=== PATIENT | male | born 1980 | race Caucasian/White ===

== ENCOUNTER 2018-05-31 14:42 | Inpatient (IN) ==
[2018-05-31] MEDS: HYDROmorphone PF Inj 2 MG/ML Vial ONE (20:45)
[2018-05-31] MEDS: Sod Chloride 0.9% Inj 1,000 ML IV.SIG SCH (22:17)
[2018-05-31] MEDS: Piperacil/Tazo 3.375 GM Premix 50 ML IV.SIG SCH (22:44)
[2018-05-31] MEDS: HYDROmorphone PF Inj 2 MG/ML Vial IV.PUSH PRN (23:57)
[2018-06-01] MEDS: HYDROmorphone PF Inj 2 MG/ML Vial ONE (00:38)
[2018-06-01] MEDS: HYDROmorphone PF Inj 2 MG/ML Vial IV.PUSH PRN ×7 (02:47→21:32)
[2018-06-01] MEDS: Piperacil/Tazo 3.375 GM Premix 50 ML IV.SIG SCH ×4 (02:48→20:01)
[2018-06-01] MEDS: Sod Chloride 0.9% Inj 1,000 ML IV.SIG SCH ×2 (06:14→20:01)
[2018-06-01] MEDS ORDERED: Bupivacaine/Epinephrine Inj 0.25% 50 ML Vial ONE (07:00)
[2018-06-01] MEDS ORDERED: Neostigmine Inj 5 MG/5 ML Syringe IV.PUSH ONE (10:00)
[2018-06-01] MEDS ORDERED: Glycopyrrolate Inj 1 MG/5 ML Syringe IV.PUSH ONE (10:00)
[2018-06-01] MEDS ORDERED: Lidocaine PF 1% Inj 5 ML Syringe OTHER ONE (10:00)
--- NOTE | 2018-06-01 10:49 | MH ---
cc: Mauricio Dias MD DATE OF ADMISSION: 05/31/2018 CHIEF COMPLAINT: Acute appendicitis. HISTORY OF PRESENT ILLNESS: The patient is a 37-year-old male who was transferred from [facility] to [facility] for acute appendicitis. The patient had 2 days of pain, colicky, umbilical pain that relocated to his right lower quadrant. The patient was seen at [place] emergency department and was found to have an elevated white blood cell count and right lower quadrant pain. CT scan did show significant inflammation around the appendix, concerning for acute appendicitis. The patient was transferred to [facility]. The patient currently is awaiting a time for surgery. He states that he got a fever overnight. His pain is well controlled on pain medication. He states he has never had pain like this prior, and the pain is relieved with the pain medication and as long as he does not move. He has had no nausea, vomiting, constipation, diarrhea, fevers, chills, or night sweats other than a fever overnight of 101.5. REVIEW OF SYSTEMS: A 12-point review of systems is conducted with the patient and is negative except for pertinent positives as mentioned above in history of present illness. PAST MEDICAL HISTORY: Asthma. PAST SURGICAL HISTORY: None. ALLERGIES: NO KNOWN DRUG ALLERGIES. HOME MEDICATIONS: None. SOCIAL HISTORY: The patient has used marijuana, e-cigarettes, tobacco cigarettes. He rarely drinks alcohol. FAMILY HISTORY: Reviewed and noncontributory. PHYSICAL EXAMINATION: VITAL SIGNS: Temperature 98.6 degrees, heart rate 97, blood pressure 102/56, O2 saturation 94%. GENERAL: The patient is a well-developed, well-nourished male in no acute distress. HEENT: Head is normocephalic, atraumatic. Pupils are round and reactive to the light. Sclerae are anicteric. Oral cavity is clear. Airway is patent. NECK: Supple. No JVD. LUNGS: Breath sounds present bilaterally, nonlabored breathing pattern. HEART: Regular rate and rhythm. No murmurs. ABDOMEN: Soft, nondistended. Normal bowel sounds. He has focal tenderness in the right lower quadrant without peritonitis or rebound tenderness. EXTREMITIES: No clubbing, cyanosis, or edema. BACK: No CVA tenderness. NEUROLOGIC: The patient is alert and oriented x3. Mood, judgment, and insight are intact. Cranial nerves 2-12 are grossly intact. Nonfocal peripheral exam. Overall, the patient does not appear acute or chronically ill. LABORATORY VALUES: White blood cell count elevated significantly at 20.6. IMAGING: CT scan reveals acute appendicitis. ASSESSMENT AND PLAN: The patient is a 37-year-old male with acute appendicitis. The patient is transferred from [place], is awaiting time at the operating room for availability. Continue IV antibiotics, pain medication, and IV fluids. I did discuss with the patient about treatment of acute appendicitis with laparoscopic appendectomy including risks, benefits, and alternatives. The patient agrees with the surgery and will proceed to surgery next available time in the OR. Mauricio Dias MD AWG/rm , 09:17 AM , 09:25 AM
[2018-06-01] MEDS ORDERED: fentaNYL Citrate Inj 100 MCG/2 ML Ampul ONE ×2 (11:34)
--- NOTE | 2018-06-01 16:19 | MP ---
cc: Mauricio iDas MD DATE OF OPERATION: 06/01/2018 PREOPERATIVE DIAGNOSIS: Acute appendicitis. POSTOPERATIVE DIAGNOSIS: Acute complicated (gangrenous) appendicitis. ATTENDING SURGEON: Mauricio Dias MD FILE DRAWER FINISHER: Staff. ANESTHESIA: General and local anesthetic. PROCEDURE PERFORMED: Laparoscopic appendectomy. COMPLICATIONS: None. ESTIMATED BLOOD LOSS: Less than 10 mL. FINDINGS: A focally gangrenous appendix without angelo rupture or abscess. No peritonitis. Retrocecal appendix. INDICATIONS FOR PROCEDURE: The patient is a 37-year-old male who was seen at [facility] for right lower quadrant pain and workup did show significantly elevated leukocytosis as well as CT scan with a large amount of inflammation around his appendix. The patient was stable without sepsis and was transferred to [facility] for a possible appendectomy. Discussed with the patient about the risks, benefits and alternatives to laparoscopic appendectomy for treatment of his appendicitis and he agreed to undergo the procedure. DESCRIPTION OF PROCEDURE: The patient was taken to the operating room, placed in supine position and placed under general endotracheal anesthesia. The patient's abdomen was shaved, prepped and draped in sterile fashion. A timeout was performed. The abdomen was entered through a Costa-type technique below the umbilicus. A curvilinear incision was made just below the umbilicus with an 11 blade scalpel and we dissected down to the fascia. We directly opened the fascia with the scalpel and directly visualized entering the abdominal cavity. We placed a 10 mm port into the abdomen and insufflated the abdomen. We were able to survey of the abdomen. There was no evidence of any complication from our entry and there was no evidence of any pathology with the exception of some fatty liver change. We were then able to place two 5 mm ports and these were in the left lower quadrant and suprapubic position under direct visualization of the laparoscope. We used local anesthetic at these port sites prior to placing them. We were then able to grasp the cecum gently and retract this upward and mobilize the right colon to gain access to the retrocecal area. We noticed a dilated, thick, inflamed and in 2 separate areas a gangrenous appendix. There is no abscess or angelo rupture of the appendix. We then continued our dissection up to the mesentery and the base of the appendix. We used 2 white loads on the [place] LILIAN 45 laparoscopic stapler to divide the appendix, followed by the appendiceal mesentery. We had an excellent staple line with no bleeding and without any sign of any leak. The appendix was removed from the abdomen with the EndoCatch bag through the 5 mm port. We did use a suction benefits representative device with 3 liters of gentamicin irrigation to suction out any fluid in the right lower quadrant and irrigate out all 4 quadrants of the abdomen to until all suctioning was clear. We had again no peritonitis, no significant retained fluid and all fluid was clear at the end of the case. We placed a 10 German Pola drain through the suprapubic port position and brought this down to the pelvis and to the right lower quadrant in the retrocecal area to continue postoperative drainage. This was sutured in place with a nylon suture. At this point in time, we turned our attention towards closure. We removed all the ports under vision of laparoscope and expressed the pneumoperitoneum. We closed the Costa port site with a [id number] 0 Vicryl suture. We closed the skin with 4-0 Monocryl and Dermabond. We placed the drain to bulb suction. The patient was discontinued from anesthesia and taken to the PACU in stable condition. The patient tolerated the procedure well. There were no apparent complications. All counts were correct. I was present and scrubbed for the entire procedure. MD ELIZABETH Giles/savana , 11:51 AM , 12:01 PM
[2018-06-02] MEDS: HYDROmorphone PF Inj 2 MG/ML Vial IV.PUSH PRN ×8 (00:33→22:04)
[2018-06-02] MEDS: Sod Chloride 0.9% Inj 1,000 ML IV.SIG SCH ×2 (03:26→12:48)
[2018-06-02] MEDS: Piperacil/Tazo 3.375 GM Premix 50 ML IV.SIG SCH ×4 (03:27→22:05)
[2018-06-02 12:08] LABS: Hematocrit 40.1 % (39.0-51.0); Hemoglobin 13.4 gm/dL (13.0-17.0); Mean Corpuscular HGB Conc 33.4 % (32.0-36.0); Mean Corpuscular Hemoglobin 29.8 pg (27.0-34.0); Mean Corpuscular Volume 89.2 fL (80.0-100.0); Mean Platelet Volume 8.3 fL (7.0-11.0); Platelet Count 297 th/mm3 (150-450); Red Blood Count 4.49 mil/mm3 (4.50-5.90); Red Cell Distribution Width 14.2 % (11.6-17.2); White Blood Count 12.2 th/mm3 (4.0-11.0)
--- NOTE | 2018-06-02 14:47 | P.PNGS ---
Subjective Interval history: Resting in bed Feeling mildly bloated Thirsty and not hungry Physical Exam Vital signs: Vital Signs 06/01/18 16:00 06/01/18 16:33 06/01/18 20:00 Temperature 98.3 F 98.8 F Pulse Rate 93 H 101 H 112 H Respiratory Rate 19 16 20 Blood Pressure 119/73 132/81 Pulse Oximetry 95 94 L 06/02/18 00:00 06/02/18 04:00 06/02/18 08:00 Temperature 98.3 F 97.4 F L 98.8 F Pulse Rate 98 H 120 H 99 H Respiratory Rate 20 20 18 Blood Pressure 129/77 126/61 117/68 Pulse Oximetry 92 L 94 L 95 06/02/18 09:09 06/02/18 12:00 06/02/18 12:08 Temperature 97.8 F Pulse Rate 108 H 18 L Respiratory Rate 16 18 5 L Blood Pressure 119/65 Pulse Oximetry 95 96 Intake & Output 06/01/18 06/02/18 06/02/18 18:59 06:59 18:59 Intake Total 2420 / 2420 1680 / 1680 1150 / 1150 Output Total 575 / 575 620 / 620 Balance 1845 / 1845 1060 / 1060 1150 / 1150 Intake: IV 1100 / 1100 1100 / 1100 1150 / 1150 Ofirmev Inj 1,000 mg In 100 ml 100 / 100 @ 400 mls/hr IV.SIG Q6H THAIS Rx# :[id number] Zosyn 3.375 GM Premix 50 ML @ 100 / 100 100 / 100 50 / 50 100 mls/hr IV.SIG Q6H THAIS Rx#: [id number] NS Inj 1,000 ML @ 100 mls/hr IV 1000 / 1000 1000 / 1000 1000 / 1000 .SIG .Q10H THAIS Rx#:[id number] Oral 420 / 420 580 / 580 Anesthesia Amount 900 / 900 Output: Urine 600 / 600 Estimated Blood Loss 25 / 25 Wound Drainage 550 / 550 20 / 20 # 1 Left Lower Abdomen Pola 450 / 450 # 1 Lower Medial Abdomen Pola 100 / 100 20 / 20 Other: # Voids 3 Narrative: Alert and awake Abd: mildly distended although soft; LELA in place with minimal SS drainage lap sites with skin glue - Urinary Catheter Management Straight Cath placed during this visit: yes Reason for continuing: Not indwelling catheter Insertion date: 06/01/18 Insertion time: 10:05 Results - Labs 06/03/18 09:06 Laboratory Results - last 24 hr 06/02/18 11:51 WBC 12.2 H RBC 4.49 L Hgb 13.4 Hct 40.1 MCV 89.2 MCH 29.8 MCHC 33.4 RDW 14.2 Plt Count 297 MPV 8.3 Assessment and Plan - Assessment (1) Gangrenous appendicitis Code(s): K35.80 - Unspecified acute appendicitis Status: Acute Plan: 37 year old male POD1 lap appy with drain placement for gangrenous appendicitis -Continue clear liquids--- discussed with patient that he is at high risk for ileus -Continue IVF and IV antibiotics -OOB as tolerated -IS -Anticipate DC in the next 48-72 hours on PO antibiotics - Attending Attestation The exam, history, and the medical decision-making described in the above note were completed with the assistance of the mid-level provider. I reviewed and agree with the findings presented. I attest that I had a [id number] encounter with the patient on the same day, and personally performed and documented my assessment and findings in the medical record. s/p lap appy abdominal exam stable postop LELA clear continue ABX
[2018-06-03] MEDS: Sod Chloride 0.9% Inj 1,000 ML IV.SIG SCH ×2 (00:45→08:57)
[2018-06-03] MEDS: HYDROmorphone PF Inj 2 MG/ML Vial IV.PUSH PRN ×4 (02:10→12:05)
[2018-06-03] MEDS: Piperacil/Tazo 3.375 GM Premix 50 ML IV.SIG SCH ×4 (02:14→21:55)
[2018-06-03 09:50] LABS: Hematocrit 39.1 % (39.0-51.0); Hemoglobin 13.1 gm/dL (13.0-17.0); Mean Corpuscular HGB Conc 33.5 % (32.0-36.0); Mean Corpuscular Hemoglobin 30.3 pg (27.0-34.0); Mean Corpuscular Volume 90.5 fL (80.0-100.0); Mean Platelet Volume 8.4 fL (7.0-11.0); Platelet Count 318 th/mm3 (150-450); Red Blood Count 4.32 mil/mm3 (4.50-5.90); Red Cell Distribution Width 14.7 % (11.6-17.2); White Blood Count 10.5 th/mm3 (4.0-11.0)
[2018-06-03] MEDS ORDERED: Pantoprazole Inj 40 MG Vial IV.PUSH SCH (11:00)
--- NOTE | 2018-06-03 14:32 | P.PNGS ---
Subjective Interval history: Resting in bed Feeling better Wants some cereal C/o acid reflux Physical Exam Vital signs: Vital Signs 06/02/18 15:30 06/02/18 16:00 06/02/18 20:00 Temperature 98.1 F 98.5 F Pulse Rate 83 96 H 99 H Respiratory Rate 16 18 17 Blood Pressure 112/59 L 128/71 Pulse Oximetry 90 L 94 L 06/02/18 22:15 06/03/18 00:00 06/03/18 04:15 Temperature 98.4 F Pulse Rate 102 H 106 H 90 Respiratory Rate 15 18 14 Blood Pressure 109/62 Pulse Oximetry 92 L 06/03/18 08:00 06/03/18 12:00 Temperature 99.4 F 100.2 F H Pulse Rate 96 H 95 H Respiratory Rate 18 18 Blood Pressure 130/76 123/74 Pulse Oximetry 92 L 93 L Intake & Output 06/02/18 06/03/18 06/03/18 18:59 06:59 18:59 Intake Total 2180 / 2180 1780 / 1780 1050 / 1050 Output Total Balance 2180 / 2180 1770 / 1770 1050 / 1050 Weight 126 kg Intake: IV 1300 / 1300 1300 / 1300 1050 / 1050 Ofirmev Inj 1,000 mg In 100 ml 200 / 200 200 / 200 @ 400 mls/hr IV.SIG Q6H THAIS Rx# :[id number] Zosyn 3.375 GM Premix 50 ML @ 100 / 100 100 / 100 50 / 50 100 mls/hr IV.SIG Q6H THAIS Rx#: [id number] NS Inj 1,000 ML @ 100 mls/hr IV 1000 / 1000 1000 / 1000 1000 / 1000 .SIG .Q10H THAIS Rx#:[id number] Oral 880 / 880 480 / 480 Output: Wound Drainage # 1 Lower Medial Abdomen Pola Other: # Voids 3 3 Date of Last Bowel Movement 06/02/18 06/02/18 Narrative: Alert and awake Abd: slightly distended; lap sites c/d/i with Steri strips in place; LELA with SS non cloudy drainage - Urinary Catheter Management Straight Cath placed during this visit: yes Reason for continuing: Not indwelling catheter Insertion date: 06/01/18 Insertion time: 10:05 Results - Labs 06/03/18 09:06 Laboratory Results - last 24 hr 06/03/18 09:06 WBC 10.5 RBC 4.32 L Hgb 13.1 Hct 39.1 MCV 90.5 MCH 30.3 MCHC 33.5 RDW 14.7 Plt Count 318 MPV 8.4 Assessment and Plan - Assessment (1) Gangrenous appendicitis Code(s): K35.80 - Unspecified acute appendicitis Status: Acute Plan: 37 year old male POD1 lap appy with drain placement for gangrenous appendicitis -Advance to regular diet for dinner -SC IVF -Transition to PO antibiotics this evening -Pain control -OOB as tolerated -IS -Anticipate DC tomorrow AM -Rx for pain meds and antibiotics on chart - Attending Attestation The exam, history, and the medical decision-making described in the above note were completed with the assistance of the mid-level provider. I reviewed and agree with the findings presented. I attest that I had a [id number] encounter with the patient on the same day, and personally performed and documented my assessment and findings in the medical record. s/p lap appy for gangrenous appendicitis doing better tolerating PO pain better, AF
[2018-06-03] MEDS ORDERED: HYDROmorphone PF Inj 2 MG/ML Vial IV.PUSH PRN (14:33)
[2018-06-04] MEDS: Piperacil/Tazo 3.375 GM Premix 50 ML IV.SIG SCH (03:33)
--- NOTE | 2018-06-04 07:21 | P.DS ---
Date of admission: 05/31/18 21:18 Primary care physician: No Primary Care Physician Attending physician on discharge: Mauricio Dias Anticipated date of discharge: 06/04/18 Brief History from admission: 37 year old male POD2 lap appy with drain placement for gangrenous appendicitis DS: Diagnosis - Discharge Diagnosis (1) Gangrenous appendicitis Status: Acute DS: Medications - Discharge Medications Prescriptions: amoxicillin-pot clavulanate [Augmentin] 1 tab PO Q12H 7 Days #14 tab hydrocodone-acetaminophen 1 tab PO Q4H PRN #18 tab PRN Reason: acute post op pain exception DS: Summary Hospital Course: This is a 37 year old male POD1 lap appy with drain placement for gangrenous appendicitis. The patient's diet was slowly advanced. He was transitioned to PO antibiotics. He will DC home with the drain. He will follow up Saturday. A prescription for antibiotics and pain pills are on the chart. - Time Spent with Patient Total time spent providing and/or coordinating discharge services: Less than 30 minutes Exam Vital signs: Vital Signs 06/03/18 08:00 06/03/18 12:00 06/03/18 16:00 Temperature 99.4 F 100.2 F H 98.2 F Pulse Rate 96 H 95 H 103 H Respiratory Rate 18 18 18 Blood Pressure 130/76 123/74 128/69 Pulse Oximetry 92 L 93 L 96 06/03/18 20:00 06/04/18 00:00 Temperature 98.2 F 98.4 F Pulse Rate 93 H 95 H Respiratory Rate 18 18 Blood Pressure 137/77 110/63 Pulse Oximetry 98 96 Intake & Output 06/03/18 06/04/18 06/04/18 18:59 06:59 18:59 Intake Total 5200 / 5200 100 / 100 Balance 5200 / 5200 100 / 100 Weight 128.2 kg Intake: IV 1700 / 1700 100 / 100 Zosyn 3.375 GM Premix 50 ML @ 100 / 100 100 / 100 100 mls/hr IV.SIG Q6H THAIS Rx#: [id number] NS Inj 1,000 ML @ 100 mls/hr IV 1600 / 1600 .SIG .Q10H THAIS Rx#:[id number] Oral 3500 / 3500 Other: # Voids 8 4 Date of Last Bowel Movement 06/02/18 06/03/18 # Bowel Movements 3 2 Narrative: Alert and awake Abd: soft; lap sites c/d/i; LELA with SS non cloudy fluid Results Procedures completed during hospitalization: laparoscopic appendectomy with drain placement for gangrenous appendicitis Completed studies during hospitalization: Pending at discharge 06/01/18 13:55 Surgical [PTH] Routine Labs on day of discharge: Labs from last 24 hours 06/03/18 09:06 WBC 10.5 RBC 4.32 L Hgb 13.1 Hct 39.1 MCV 90.5 MCH 30.3 MCHC 33.5 RDW 14.7 Plt Count 318 MPV 8.4 Discharge Plan - Discharge Disposition Patient Disposition: Discharge Home - Discharge Condition Condition: Good - Discharge Order Discharge Orders: Discharge Order (Routine); Ordered 06/04/18 Ordered By: Tania Angulo - Discharge Details Anticipated Discharge Date: 06/04/18 Discharge Comment: rx on chart ; DC with LELA drain - Physicians Team Primary Care Provider: Primary Care Megan Mena Attending Provider: Mauricio Dias Other Providers: [employer],Insurance - Rxs /Orders / Referrals /Forms Prescriptions: New amoxicillin-pot clavulanate [Augmentin] 875-125 mg Tablet 1 tab PO Q12H 7 Days Qty: 14 RF: 0 hydrocodone-acetaminophen 5-325 mg Tablet 1 tab PO Q4H PRN (Reason: acute post op pain exception ) Qty: 18 RF: 0 No Action No Known Home Medications Referrals: Mauricio Dias MD [Physician] - See Instructions (Appt set for SaturdayJun 09 at 3PM) Primary Care Megan Mena [Primary Care Provider] - See Instructions ([address] [phone] -Office opens at 8:00am, Call the morning of you would like to be seen. [facility] offers same day appts. ) Forms: Work Release/Restrictions - Discharge Instructions Patient Printed Instructions: Hydrocodone/Acetaminophen (By mouth), Amoxicillin /Clavulanate Potassium (By mouth), Jamin-Franco Drain Care (DC), Laparoscopic Appendectomy (DC), Skin Adhesive Care (DC)
[2018-06-04] MEDS ORDERED: Amoxicillin/Clavulanate 875/125 MG Tablet PO SCH (09:00)
[2018-06-04 09:04] VITALS: BP 113/70; PULSE 76; RESP 17; TEMP 97.9; O2SAT 97
--- NOTE | 2018-06-22 06:07 | ED ---
HPI Related Data Home Medications Medication Instructions Recorded Confirmed No Known Home Medications 05/31/18 06/02/18 Previous Rx's Medication Instructions Recorded hydrocodone-acetaminophen 1 tab PO Q4H PRN #18 tab 06/03/18 Allergies Allergy/AdvReac Type Severity Reaction Status Date / Time No Known Allergies Allergy Verified 05/31/18 15:26 [facility] Social History Social History Substance History: Active Abuse Smoking Status: Current every day smoker Tobacco Type: E-Cigarettes How Often Do You Have a Drink Containing Alcohol: Monthly or less Course Initial Documented Vital Signs Temperature 98.3 F 05/31/18 21:20 Pulse Rate 98 H 05/31/18 21:20 Respiratory Rate 17 05/31/18 21:20 Blood Pressure 136/77 05/31/18 21:20 Pulse Oximetry 97 05/31/18 21:20 Last Documented Vital Signs Temperature 97.9 F 06/04/18 08:00 Pulse Rate 76 06/04/18 08:00 Respiratory Rate 17 06/04/18 08:00 Blood Pressure 113/70 06/04/18 08:00 Pulse Oximetry 97 06/04/18 08:00 Medical Decision Making MDM Narrative Medical Screen Exam Complete: Yes Emergency Medical Condition: Yes Lab Data Result diagrams: 06/03/18 09:06 Lab Results 06/02/18 06/03/18 Range/Units 11:51 09:06 WBC 12.2 H 10.5 (4.0-11.0) th/mm3 RBC 4.49 L 4.32 L (4.50-5.90) mil/mm3 Hgb 13.4 13.1 (13.0-17.0) gm/dL Hct 40.1 39.1 (39.0-51.0) % MCV 89.2 90.5 (80.0-100.0) fL MCH 29.8 30.3 (27.0-34.0) pg MCHC 33.4 33.5 (32.0-36.0) % RDW 14.2 14.7 (11.6-17.2) % Plt Count 297 318 (150-450) th/mm3 MPV 8.3 8.4 (7.0-11.0) fL Discharge Plan Discharge Condition Condition: Good Discharge Order Discharge Orders: Discharge Order (Routine); Ordered 06/04/18 Ordered By: Tania Angulo Discharge Details Anticipated Discharge Date: 06/04/18 Discharge Comment: rx on chart ; DC with LELA meg Physicians Team ED Provider: Rommel Mir Primary Care Provider: Primary Care Megan Mena Attending Provider: Mauricio Dias Other Providers: [facility],Insurance Status ED Status: Admitted Patient
== END 2018-06-04 11:06 | disposition home or self-care (01) ==
LOC: NEDDLT 14:42 → N07 21:18
PROVIDERS: ADMIT Surgery; ATTEND Surgery
PROC: LAPAPPY (ICD-10-PCS; 2018-06-01 09:57)